=== PATIENT | male | born 1980 ===

== ENCOUNTER 2020-08-18 06:59 | Inpatient (IN) | payer OTHER ==
[~2020-08-18] VITALS: Ht 175.3 cm; Wt 77.1 kg
[2020-08-18] VITALS (10 sets, daily range): BP systolic 101–159; BP diastolic 56–89
[~2020-08-18 06:59] MED LIST: CENTRUM ADULTS1 TAB PO
--- NOTE | 2020-08-18 11:40 | NUR ---
PT ARRIVED FROM OR VIA STRETCHER WITH 2 GUARDS. IV SITE INTACT.
--- NOTE | 2020-08-18 12:34 | NUR ---
ASSESSMENT IS COMPLETED: IV SITE IS FREE FROM REDNESS OR EDEMA. HR IS REG,PULSES ARE STRONG X4, ABD IS SOFT WITH ACTIVE BS, BREATH SOUNDS ARE CLEAR BILATERALLY, PT HAS A DRESSING IS CDI , RAFITA DRAIN BLOODY DRAINAGE NOTED. PERSON INTACT. 2 GUARDS AT BEDSIDE. CONTINUE TO OBSERVE AND MONITOR.
[2020-08-18 13:11] LABS: ANION GAP 11 (6-22 (CALC)); BUN 13 mg/dL (9-20); BUN/CREATININE RATIO 17 (12-20 (CALC)); CARBON DIOXIDE 29 mmol/l (22-30); CHLORIDE 101 mmol/l (95-108); CREATININE 0.8 mg/dL (0.7-1.3); GFR > 60 ML/MIN (>=60 (CALC)); GFR FOR AFR.AMER. > 60 ML/MIN (>=60 (CALC)); POTASSIUM 4.3 mmol/l (3.5-5.1); SODIUM 137 mmol/l (137-146)
--- NOTE | 2020-08-18 13:30 | NUR ---
IV SITE BECAME PUFFY, AND WAS STOPPED. NEW IV SITE OBTAINED AT 1515 BY Octavio MANLEY WITH #20 IN RAC PT TOLERATED WELL. 2 GUARDS REMAINED AT BEDSIDE.
--- NOTE | 2020-08-18 13:41 | NUR ---
[facility]IL[facility], INFORMED THEM ABOUT THE REASON PT IS STAYING IN THE HOSPITAL. OPEN INCARCERATED HERNIA REPAIR, ALSO A NICKED BLADDER , HAS A PERSON AND RAFITA DRAIN.
--- NOTE | 2020-08-18 15:56 | NUR ---
PT REQUESTED PAIN MEDICATION.
--- NOTE | 2020-08-18 20:30 | NUR ---
PT MEDICATED ORDERS PROVIDE. REPORTS MINIMAL PAIN CONTROLLED AT THIS TIME. INCISION BRUISED BUT CDI. RAFITA DRAIN TO BULB SUCTION W/MODERATE AMOUNT OF RED OUTPUT. GUARDS AT BEDSIDE X4 FOR SHIFTCHANGE. PT IS SHACKLED TO BED BY LEFT ANKLE, CONFIRMED CIRCULATION WTIH GOOD PEDAL PULSES AND ROM. PT PROVIDED SNACK AT THIS TIME. CALL LIGHT IS AT SIDE AND PT HAS BEEN INSTRUCTED TO USE IT IF HE NEEDS TO AMBULATE OR ANY ASSISTANCE.
--- NOTE | 2020-08-18 22:59 | NUR ---
PT MEDICATED W/IV ANTIBIOTIC THERAPY AND W/PAIN MEDICATIONS ORDERS PROVIDE. PT REPORTS 4-6 PAIN LEVEL. 60CC OF BLOODY OUTPUT EMPTIED FROM PT'S RAFITA DRAIN. PT DENIES ANY OTHER NEEDS AT THIS TIME. PT IS AWAKE WATCHING TV. GUARDS X2 AT BEDSIDE. CALL LIGHT AT SIDE.
--- NOTE | 2020-08-19 01:11 | NUR ---
PT CALLED TO REPORT "REALLY BAD PAIN" IN HIS ABD. ASSESSED ABD AT THIS TIME TO APPEAR STABLE WITH INCIS CDI W/OUT ANY ADDITIONAL VISIBLE BRUISING OR DISTENTION. RAFITA DRAIN DRESSING CDI WITH SMALL AMOUNT OF OUTPUT AT THIS TIME. PT MEDICATED FOR PAIN WITH DILAUDID ORDERS PROVIDE AND INSTRUCTED PT TO CALL WITH ANY FURTHER CONCERNS OR DISTRESS. PERSON CATH DRAINING TO GRAVITY DARK YELLOW URINE.
--- NOTE | 2020-08-19 03:46 | NUR ---
PT CALLED TO ASK THAT HIS JPDRAIN BE EMPTIED. BULB STILL HAD REALLY STRONG SUCTION, BUT I EMPTIED 50CC OF RED BLOODY DRAINAGE AT THIS TIME. HE REPORTS THAT HIS PAIN LEVEL IS VERY CONTROLLED ALSO AT THIS TIME. CALL LIGHT AT SIDE AND GUARDS X2 AT BEDSIDE. PT DENIES ANY OTHER NEEDS.
[2020-08-19 04:00] VITALS: BP 110/62
[2020-08-19 05:48] LABS: HEMATOCRIT 37.3 % (39.0-50.0); HEMOGLOBIN 12.2 g/dl (14.0-18.0); IMMATURE GRANULOCYTES 0.2 % (0.0-5.0); MEAN CELL VOLUME 92.1 fL CALC (80.0-100.0); MEAN CORPUSCULAR HGB 30.1 pG CALC (26.0-32.0); MEAN CORPUSCULAR HGB CONC 32.7 g/dL CAL (32.0-36.0); NEUT# 6.8 thou/uL (1.82-7.42); RED BLOOD COUNT 4.05 mill/uL (4.70-6.10); RED CELL DISTRI WIDTH 12.1 % (11.5-15.5)
--- NOTE | 2020-08-19 05:53 | NUR ---
PT MEDICATED FOR PAIN 11/16 AND ANTIBIOTIC THERAPY ADMINISTERED AT THIS TIME.
[2020-08-19 06:00] LABS: ANION GAP 11 (6-22 (CALC)); BUN 18 mg/dL (9-20); BUN/CREATININE RATIO 18 (12-20 (CALC)); CARBON DIOXIDE 28 mmol/l (22-30); CHLORIDE 103 mmol/l (95-108); GFR > 60 ML/MIN (>=60 (CALC)); GFR FOR AFR.AMER. > 60 ML/MIN (>=60 (CALC)); POTASSIUM 3.8 mmol/l (3.5-5.1); SODIUM 138 mmol/l (137-146)
[2020-08-19 08:45] VITALS: BP 137/83
--- NOTE | 2020-08-19 08:55 | NUR ---
PATIENT RESTING IN THE BED , ALERT AND ORIENTED X3, NOTED 2 GUARDS AT THE BEDSIDE. O2 ROOM AIR LA NENA TO THE ABD CLEAN DRY AND INTACT. RAFITA DRAINING BRIGHT RED COLORED DRAINAGE. PERSON TO BEDSIDE DRAINAGE. IV INFUSING. SCD,S IN PLACE, PATIENT DENIES PAIN AT THIS TIME. REPOSITIOEND FOR COMFORT, SIDE RAILS UP CALL LIGHT IN REACH BED LOCKED IN LOW POSITION, WILL CONTINUE TO MONIOTR THE PATIENT.
--- NOTE | 2020-08-19 10:15 | NUR ---
OUT OF THE BED TO THE BSC, ALE WELL, BACK TO THE BED WITH ASST.
--- NOTE | 2020-08-19 11:56 | NUR ---
C/O PAIN MED PER ORDER. RAFITA SAMPLE SENT TO THE LAB. WILL CONTINUE TO MONITOR THE PATIENT.
--- NOTE | 2020-08-19 13:19 | NUR ---
PATIENT RESTING COMFORTABLE NO DISTRESS NOTED AT THIS TIME, WILL CONTINUE TO MONIOTR THE PATIENT.
[2020-08-19 15:33] VITALS: BP 125/78
--- NOTE | 2020-08-19 17:17 | NUR ---
PT RESTING IN THE BED STATES HE IS FEELING BETTER TODAY THAN YESTERDAY. RAFITA EMPTIED. PT STATES THE TORADOL IS HELPING WITH THE PAIN. NO DISTRESS NOTED AT THIS TIME. SIDE RAISL UP CALL LIGHT IN REACH, BED LOCKED IN LOW POSITION,2 GUARDS AT THE BEDSIDE. ALL SAFTY MEASURES IN PLACE. WILL CONTINUE TO MONIOTR THE PATIENT.
[2020-08-19 19:36] VITALS: BP 136/79
--- NOTE | 2020-08-19 20:04 | NUR ---
SCHEDULED MEDICATIONS AND PRN MEDICATION ADMINISTERED, SEE E-MAR. PT DENIES ANY NEEDS AT THIS TIME. PLAN OF CARE REVIEWED, PT DENIES QUESTIONS, VERBALIZES UNDERSTANDING. ITEMS WITHIN REACH, BED LOCKED IN LOW POSITION W/ BEDRAILS UP X2. CALL GORDON WITHIN REACH, AGREES TO CALL PRN.
--- NOTE | 2020-08-20 00:18 | NUR ---
PT LAYING IN BED WITH EYES CLOSED, APPEARS TO BE SLEEPING, APPEARS COMFORTABLE AND IN NO DISTRESS. RESPIRATIONS REGULAR AND UNLABORED. PT SHACKLED TO THE BED. GOOD CIRCULATION. 2 GUARDS BEDSIDE. ITEMS REMAIN WITHIN REACH, CALL GORDON REMAINS WITHIN REACH. BED REMAINS LOCKED AND IN LOW POSITION WITH BEDRAILS UP X2. WILL CONTINUE TO MONITOR.
--- NOTE | 2020-08-20 04:00 | NUR ---
PT RESTING IN BED, NO SIGNS OF DISTRESS NOTED, RESP EVEN AND UNLABORED. PT VOICES NO NEEDS OR COMPLAINTS AT THIS TIME. PT IS SHACKLED TO THE BED. CIRCULATION VERIFIED. 2 GUARDS ARE PRESENT. CALL LIGHT IN REACH, CONTINUE TO MONITOR.
[2020-08-20 04:41] VITALS: BP 121/76
[2020-08-20 08:27] VITALS: BP 133/80
--- NOTE | 2020-08-20 08:51 | NUR ---
PATIENT RESTING IN THE BED AXOX3. IV INFUSING , RAFITA DRAIN TO BULB SUCTION. PERSON TO BEDSIDE DRAINAGE. INCISSION CLEAN DRY AND INTACT. PATIENT STATES HIS PAIN AT A ONE (PERCOCET GIVEN AT 8.25) AT THIS TIME. OUT OF THE BED TO AMB IN THE PRESTON. NO SOB NOTED, PATIENT ABLE TO AMB 200FT WITHOUT DISTRESS. BACK TO BED WITH ASST. SIDE RAILS UP CALL LIGHT IN REACH, BED LOCKED IN LOW POSITION. GUARDS AT THE BEDSIDE, ALL SAFTY MEASURES IN PLACE. WILL CONTINUE TO MONITOR THE PATIENT.
--- NOTE | 2020-08-20 09:42 | NUR ---
PT HAD A LARGE BROWN SOFT STOOL.
--- NOTE | 2020-08-20 10:12 | NUR ---
NOTED SLIGHT RED DRAINAGE FROM THE MEATUS. HYGINE CARE GIVEN. NO DISTRESS TO THE PATIENT. WILL CONTINUE TO MONITOR.
--- NOTE | 2020-08-20 11:11 | NUR ---
PT RESTING COMFORTABLE IN THE BE. GUARDS AT THE BEDSIDE. NO DISTRESS NOTED AT THIS TIME. WILL CONTINUE TO MONITOR THE PATIENT.
[2020-08-20] MEDS ORDERED: BACTRIM DS1 TAB PO (11:29)
--- NOTE | 2020-08-20 11:52 | NUR ---
IV TO HL PER ORDER.
--- NOTE | 2020-08-20 12:03 | NUR ---
RECIEVED REPORT FROM VINEET KURTZ. CARE CONTINUED
--- NOTE | 2020-08-20 12:15 | NUR ---
PT RESTING IN SEMI FOWLES POSITION UPON ENTERING ROOM. INTRODUCED SELF TO PT AND DISCUSSED POC. PT IS A/O X3. RESPIRATIONS ARE EVEN AND UNLABORED ON ROOM AIR. #20G IN RAC FLUSHED, SITE APPEARS HEALTHY AND PATENT.ABD IS SOFT WITH TENDERNESS NOTED. RAFITA DRAIN IN PLACE. 10CC OFF BLOODY OUTPUT NOTED. PERSON CATHATER IN PLACE, 1000 OF DINA COLOR URINE NOTED. PT DENIES OF ANY PAINS OR DISCOMFORTS. ALL SAFETY PRECAUTIONS ARE IN PLACE WIHT GUARDS X2 AT BEDSIDE. WILL CONTINUE TO MONITOR.
--- NOTE | 2020-08-20 12:49 | NUR ---
RAFITA DRAIN TO RIGHT ABD REMOVED. PT TOLERATED WELL. PRESSURE DRESSING APPLIED. PT REQUESTING PAIN MEDICATIONS. PT MEDICATED PER EMAR.
--- NOTE | 2020-08-20 13:24 | NUR ---
[facility]
[2020-08-20 14:35] VITALS: BP 136/76
--- NOTE | 2020-08-20 16:50 | NUR ---
PT REQUESTING TO SHOWER AT THIS TIME. IV SITE AND RAFITA DRESSING COVERED. ASSISTED PT INTO SHOWER. INFORMED PT TO CALL FOR ASSISTANCE IF NEEDED. PT VERBALIZED UNDERSTANDING. ALL ASFETY PRECAUTIONS ARE IN PLACE WITH CALL LIGHT IN REACH AND GUARDS X2 AT BEDSIDE. WILL CONTINUE TO MONITOR
[2020-08-20 19:00] VITALS: BP 130/88
--- NOTE | 2020-08-20 21:17 | NUR ---
PHYSICAL ASSESMENT COMPLETE. PT C/O OF PAIN AND DISCOMFORT. SCHEDULED MEDICATIONS AND PRN MEDICATION ADMINISTERED, SEE E-MAR. PT DENIES ANY NEEDS AT THIS TIME. PT IS SHCKLED TO THE BED. CIRCULATION CHECKED AND VERIFIED. 2 GUARDS PRESENT. PLAN OF CARE REVIEWED, PT DENIES QUESTIONS, VERBALIZES UNDERSTANDING. ITEMS WITHIN REACH, BED LOCKED IN LOW POSITION W/ BEDRAILS UP X2. CALL GORDON WITHIN REACH, AGREES TO CALL PRN.
--- NOTE | 2020-08-21 00:05 | NUR ---
PT LAYING IN BED WITH EYES CLOSED, APPEARS TO BE SLEEPING, APPEARS COMFORTABLE AND IN NO DISTRESS. RESPIRATIONS REGULAR AND UNLABORED. PT IS SHACKLED TO THE BED. CIRCULATION WAS VERIFIED. 2 GUARDS ARE BEDSIDE. ITEMS REMAIN WITHIN REACH, CALL GORDON REMAINS WITHIN REACH. BED REMAINS LOCKED AND IN LOW POSITION WITH BEDRAILS UP X2. WILL CONTINUE TO MONITOR.
--- NOTE | 2020-08-21 00:15 | NUR ---
NOTED PTS URINE IS A PINK COLOR IN PERSON BAG. TUBING CHECKED FOR BENDS AND KINKS. TUBING IS UNOBSTRUCTED. WILL CONTINUE TO MONITOR.
--- NOTE | 2020-08-21 03:47 | NUR ---
PT RESTING IN BED, NO SIGNS OF DISTRESS NOTED, RESP EVEN AND UNLABORED. PT VOICES NO NEEDS OR COMPLAINTS AT THIS TIME. CALL LIGHT IN REACH, CONTINUE TO MONITOR.
[2020-08-21 03:58] VITALS: BP 134/72
[2020-08-21 07:30] VITALS: BP 114/73
--- NOTE | 2020-08-21 07:30 | NUR ---
PATIENT IN BED AT THIS TIME COMPLAINING OF PAIN IN ABDOMEN STATES IT IS A 7 PREVIOUSLY MEDICATED. PERSON PATENT AND DRAINING LIGHT PINK TINGED URINE AT THIS TIME DR. DUQUE NOTIFITED. CALL LIGHT WITHIN REACH SIDERAILS UP X 2 TWO CORRECTIONAL OFFICERS AT BEDSIDE DAVID GARDNERKLED ON AT THIS TIME. CASINO ATTENDANT DONE SEE INTERVENTIONS.
--- NOTE | 2020-08-21 10:00 | NUR ---
INCISIONS DRY AND INTACT AT THIS TIME NOTED BRUISING AROUND INCISIONS. INCISION LINE APPROXIMATE AND ARE IN HEALING STAGES. DRESSING WHERE RAFITA DRAIN WAS IN DRY AND INTACT AT THIS TIME AND IS COVERED WITH TEGADERM.
--- NOTE | 2020-08-21 12:10 | NUR ---
PATIENT RESTING IN BED AT THIS TIME 2 GUARDS ARE IN ROOM PRESENT. SIDERAILS ARE UP X 2 CALL LIGHT WITHIN REACH. PATIENT C/0 PAIN IN PERSON AT THIS TIME PERSON IS DRAINING LIGHT PINK TINGED URINE AT THIS TIME.
--- NOTE | 2020-08-21 13:30 | NUR ---
PATIENT COMPLAINING AT THIS TIME THAT IS BLADDER IS HURTING AND THE PERSON CATH THAT IS INPLACE IS HURTING. PERSON NOTED TO HAVE BLOOD TINGED URING AND 800MLS DRAINED AT THIS TIME. ORDER OBTAINED TO IRRIGATE WITH 1000ML OF STERIL WATER. IRRIGATION ATTEMPTED AT THIS TIME AND RESISTANCE WAS NOTED AND PATIENT COMPLAINED OF PAIN. PROCEEDURE STOPPED AND PERSON CATH REMOVED AT THIS TIME. WILLEM MANLEY ATTEMPTED TO INSERT #22 TURKMEN CATH AT THIS TIME AND AFTER INSERTIONS PERSON FAILED TO DRAIN AND PERSON WAS BEING REMOVED TWO LARGE CLOTS CAME OUT AT THIS TIME. DRU JOHNSON RN INSERTED A #22 TURKMEN 3-WAY AT THIS TIME AND CBI WAS STARTED. URINE FLOWING AND SMALL CLOTS NOTED IN TUBING AND URINE IS BLOOD TINGED AT THIS TIME. PATIENT STATED THAT HE DOES FEEL BETTER AT THIS TIME AND FEELS IF HIS BLADDER IS RELEASING URINE AT THIS TIME. PATIENT WILL CONTINUE TO BE MONITORED AND CBI WILL CONTINUE.
[2020-08-21 14:35] VITALS: BP 152/85
--- NOTE | 2020-08-21 15:56 | NUR ---
PERSON CATH EMPTIED AT THIS TIME A TOTAL OF 2700 ML EMPITED WITH ACTUAL URINE VOLUME TO BE 750 AT THIS TIME. URINE IS CLEAR AND WITHOUT CLOTS AT THIS TIME. PER DR. LANIER ORDER GIVEN TO STOP CBI AT THIS TIME AND CONTINUE TO MONITOR.
--- NOTE | 2020-08-21 16:07 | NUR ---
PATIENT RESTING IN BED AT THIS TIME. PATIENT STATES HE IS HAVING PAIN BUT NOT BAD BEFORE STATED BY PATIENT. PATIENT PERSON INPALCE AND DRAING CLEAR URING AT THIS TIME. SIDERAILS UP X 2 PATIENT REMAINS SCHAKELED AND TWO CORRECTIONS OFFICERS AT BEDSIDE.
--- NOTE | 2020-08-21 17:16 | NUR ---
PATIENT REPORTS PAIN SCALE IS NOW A 5 OUT OF 0-10 AT THIS TIME. WILL CONTINUE TO MONITOR.
[2020-08-21 19:30] VITALS: BP 132/79
--- NOTE | 2020-08-21 20:43 | NUR ---
RECEIVED REPORT FOR THIS PT AND IN BED WITH EYES CLOSED. RESPIRATION EVEN AND NON LABORED. HEART RHYTHM REGULAR. ABDOME IS FLAT AND BOWEL SOUNDS AR ACTIVE/HYPOACTIVE IN BILAT LOWER QUADRANTS.PT STATES HE IS PASSING GAS. DRESSING TO DRAIN SITE INSERTION IS INTACT AND SHADOWING NOTED ON DRESSING. MID LOWER INCISION SITE IS INTACT AND WELL APPROXIMATED WITH SURROUNDING INCISION SITE NOTED WITH PURPLISH COLOR BRUISES. PT STATES HE HAS A PRODUCTIVE COUGH. LUNG SOUNDS ARE CLEAR AND EQUAL. RADIAL AND PEDAL PULSE FELT BILATERALLY. IV 20G INTACT AND NO S/S OF INFECTION/INFILTRATION. PERSON CATH IN PLACE AND DRAING PINKISH COLORED URINE. NO CLOTS VISUALIZED. WILL CONTINUE TO OBSERVE.
--- NOTE | 2020-08-22 01:27 | NUR ---
PT CONTINUES TO COMPLAIN OF PAIN AT 10 ON SCALE OF 1-10 WITH 10 GREATESTO PENIS AREA. BRUISING REDNESS AND SWELLING NOTED AROUNF THE SHAFT OF PENIS. PT STATES HE FELT LIKE CATHETER WAS COMING OUT. FLUID REMOVED FROM PERSON CATH AND CATHETER WAS ADVANCED AND FLUIDS REPLACED IN [place] AND PT STATES HE FELT SOME RELEIF AT THAT MOMENT. PERSON CATHETER IS DRAINING BLOOD TINGED URINE THAT IS TEA COLORED WITH SEDIMENT NOTED AND NO CLOTS NOTED. BLADDER SCAN WAS COMPLETED AND 66ML AND 32ML NOTED. ICE APPLIED TO PENILE AREA AND ELEVATED PENIS. OXYBUTYNIN WAS GIVEN TO ASSIST WITH BLADDER AND PENILE SPASM. PT WAS EDUCATED TO DRINK MORE FLUIDS. PT ONLY WANTING TO DRINK SWEET BEVERAGES. ENCOURAGED PT TO INCREASED WATER INTAKE AND HE STATES HE UNDERSTANDS. CALL LIGHT IS WITHIN REACH. WILL CONTINUE TO OBSERVE
--- NOTE | 2020-08-22 03:22 | NUR ---
pt complaining burning, throbbing, and muscle spasms. ice applied to penile area and helpful. penile elevation helpful as well. continues to have bllod tinged tea colored urine noted. dilaudid was given and prescribed and helpful. Call light is within reach. will continue to observe
[2020-08-22 04:00] VITALS: BP 125/76
[2020-08-22 06:10] LABS: HEMATOCRIT 40.7 % (39.0-50.0); HEMOGLOBIN 13.6 g/dl (14.0-18.0); MEAN CELL VOLUME 89.5 fL CALC (80.0-100.0); MEAN CORPUSCULAR HGB 29.9 pG CALC (26.0-32.0); MEAN CORPUSCULAR HGB CONC 33.4 g/dL CAL (32.0-36.0); RED BLOOD COUNT 4.55 mill/uL (4.70-6.10); RED CELL DISTRI WIDTH 12.1 % (11.5-15.5)
--- NOTE | 2020-08-22 06:29 | NUR ---
PT IN BED WITH EYES OPEN AND ABLE TO MAKE NEEDS KNOWN. WAS MEDICATEDN WITH PERCOCET FOR PENILE PAIN AND EFFECTIVE. PT STARTED ON PYRIDIUM FOR BLADDER PAIN. ICE WAS APPLIED TO PENIS AND EFFECTIVE TO EASE PAIN. CONTINUING TO ENCOURAGE FLUID INTAKE. URINE IS TEA COLORED AND OUTPUT THIS AM 1400ML. ABDOMEN IS FLAT AND 2 INCISION TO LOWER ABDOMEN IS INTACT AND WELL APPROXIMATED. VITALS ARE WITHIN NORMAL LIMITS AND WILL CONTINUE TO OBSERVE
[2020-08-22 06:38] LABS: ANION GAP 10 (6-22 (CALC)); BUN 18 mg/dL (9-20); BUN/CREATININE RATIO 18 (12-20 (CALC)); CARBON DIOXIDE 31 mmol/l (22-30); CHLORIDE 98 mmol/l (95-108); GFR > 60 ML/MIN (>=60 (CALC)); GFR FOR AFR.AMER. > 60 ML/MIN (>=60 (CALC)); POTASSIUM 4.2 mmol/l (3.5-5.1); SODIUM 135 mmol/l (137-146)
[2020-08-22 07:45] VITALS: BP 120/80
--- NOTE | 2020-08-22 07:45 | NUR ---
PATIENT LAYING IN BED AT THIS TIME SCHAKLED TO BED TWO CORRECTIONAL OFFICERS AT BEDSIDE. PATIENT ROOFING TILE SORTER DONE AT THIS TIME. PERSON PATENT AND DRAINING ORANGE/TEA COLOR URING AT THIS TIME. NO BLOOD CLOTS NOTED. PATIENTS C/0 PAIN IN PENIS AREA AND PENIS IS BRUISED AND SLIGHTLY EDEMAOUS AT THIS TIME. PATENT HAS A #[address] PATIENT EDUCATED ON THE USE OF AN ICE-PACK ON HIS PENIS AND VERBALIZES UNDERSTANDING. PATIENT WAS PREVIOULY MEDICATED FOR PAIN AND RATES HIS PAIN NOW AT A "4" OUT OF A PAIN SCALE OF 0-10. SIDERAILS ARE UP CALL LIGHT WITHIN REACH. ABDOMINAL INCISIONS ARE DRY AND INTACT AND IN HEALING STAGES. RAFITA DRAIN SITE DRESSING DRY AND INTACT AND NO DRAINAGE NOTED.
--- NOTE | 2020-08-22 09:30 | NUR ---
WENT TO PATIENT'S ROOM TO GIVE MORNING MEDICATIONS AT THIS TIME. EXPLAINED TO PATIENT THAT IV DILAUDID WAS NOW DC AND HE COULD HAVE OXYCODONE FOR PAIN. WHEN ASKED WHAT HIS PAIN LEVEL WAS AT THIS TIME PATIENT STATED "I'M GOOD" I DON'T NEED ANYTHING FOR PAIN. PATIENT ADVISED TO CALL FOR NURSE IF HIS PAIN INCREASED AND WOULD LIKE TO BE MEDICATED FOR PAIN.
--- NOTE | 2020-08-22 10:56 | NUR ---
MEDICATED PATIENT AT THIS TIME WITH OXYCODONE 5/325MG FOR STATED PAIN LEVEL OF "10" AND A FACIAL SCALE OF "5". WILL CONTINUE TO MONITOR.
--- NOTE | 2020-08-22 11:26 | NUR ---
PATIENT PAIN LEVEL IS NOW A "7" AND HIS FACE SCALE IS A 5. PATIENT WILL CONTINUE TO BE MONITORED.
--- NOTE | 2020-08-22 12:00 | NUR ---
PATIENT SITTING IN BED AT THIS EATING LUNCH AND WATCHING TV. PATIENT STATED PAIN IS "7" OUT OF A SCALE OF 0-10. PATIENT ADVISED THAT HE NEEDS TO WALK IN THE PRESTON TODAY AT LEAST 200 FT. AND THAT HE WILL BE ASSISTED. PATIENT VERBALIZED UNDERSTANDING OF PLAN OF CARE.
--- NOTE | 2020-08-22 13:00 | NUR ---
PATIENT UP AND WALKING IN HALLWAY AT THIS TIME WITH TWO GAURDS AT PRESENT. PATIENT THEN REQESTED TO TAKE SHOWER AT THIS TIME. PATIENT TOLERATED WALK WITHIOUT INCIDENT OR ISSUES.
--- NOTE | 2020-08-22 13:54 | NUR ---
TRANSFER PATIENT TO NURSE AUDRA MAHER AT THIS TIME. PATIENT IN STABLE CONDITION.
[2020-08-22 15:30] VITALS: BP 135/83
--- NOTE | 2020-08-22 16:00 | NUR ---
PT IS RELAXING IN BED WITH C/O PAIN , MED WAS GIVEN AT 1500 PER TIME.
--- NOTE | 2020-08-22 16:44 | NUR ---
SPOKE WITH NURSE CORMIER AT [facility]. AN UPDATE FOR PT. WILL HAVE A PROCEDURE ON MONDAY POSSIBLE LATE AFTERNOON DISCHARGE ON MONDAY
--- NOTE | 2020-08-22 19:30 | NUR ---
PATIENT RESTING IN BED AT THIS TIME WITH KELECHI'S AT BEDSIDE. PATIENT IS AWAKE ALERT AND ORIENTEDX3 C/O POST-OP PENIAL PAIN-8/10 ON PAIN SCALE. PATIENT MEDICATED WITH PERCOCET ORDERED FOR PAIN. FOELY CATH IS PATENT AND DRAINING ORANGE URINE-PATIENT IS ON PYRIDIUM. USE ICE FOR SWELLING AND COMFORT. IV SITE TO RAC INTACT-APPEARS HEALTHY AT THIS TIME. ENCOURAGE PO FLUIDS/ PATIENT IS ABLE TO DEMONSTRATE PROPER USE OF IS AT THIS TIME. ENCOURAGED USE Q1H WHILE AWAKE IN REPS OF 10. SCD'S ARE IN PLACE. LLE SHACKLED TO BED. SAFETY PRECAUTIONS REINFORCED. CALL LIGHT IN REACH. WILL CONT TO MONITOR.
[2020-08-22 20:00] VITALS: BP 125/81
--- NOTE | 2020-08-22 23:34 | NUR ---
PATIENT RESTING IN BED WITH KELECHI'S AT BEDSIDE. MEDICATED FOR C/O PAIN WITH PERCOCET 5/325MG PO. PERSON REMAINS PATENT AND DRAINING ORANGE URINE. CONT TO USE ICE PACKS TO PENIS.SCOTAL AREA. CALL LIGHT IN REACH, WILL CONT TO MONITOR.
[2020-08-23] VITALS: BP 132/69
--- NOTE | 2020-08-23 02:26 | NUR ---
RESTING IN BED-STILL AWAKE WITH KELECHI'S AT BEDSIDE. PERSON PATENT AND DRAINING ORANGE URINE. SNACKS AT BEDSIDE. CALL LIGHT IN REACH. WILL CONT TO MONITOR.
--- NOTE | 2020-08-23 03:27 | NUR ---
PATIENT RESTING IN BED WITH KELECHI'S AT BEDSIDE. PATIENT C/O SEVERE PAIN TO PENIS 10/10 ON PAIN SCALE. MEDICATED WITH PERCOCET 5/325MG PO. PATIENT WITH LITTLE OR NO SLEEP ALL NIGHT. PERSON PATENT AND DRAINING ORANGE URINE-PATIENT IS ON PYRIDIUM. CALL LIGHT IN REACH. WILL CONT TO MONITOR.
[2020-08-23 04:00] VITALS: BP 147/85
--- NOTE | 2020-08-23 04:51 | NUR ---
PATIENT RESTING IN BED-STILL AWAKE. PATIENT HAS SLEPT VERY LITTLE IF ANY TONIGHT. PERSON PATENT AND DRAINING ORANGE URINE. CALL LIGHT IN REACH. WILL CONT TO MONITOR.
[2020-08-23 07:13] VITALS: BP 126/75
--- NOTE | 2020-08-23 07:13 | NUR ---
PATIENT RESTING IN BED AT THIS TIME. PATIENT STATES HIS PAIN IS A "8" OUT OF THE PAIN SCALE OF 0-10. PATIENT FACIAL EXPRESSIONS IS A 4 ON THE FACE SCALE. PATIENT REMINDED IT IS TOO EARLY TO BE REMEDICATED FOR PAIN AT THIS TIME. PATIENT DIRECTED ON RELAXATION TECHNIQUES. SLIMER DONE AT THIS TIME SEE INTERVENTIONS. PERSON CATH REMAINS PATIENT AND DRAINING ORANGE COLORED URINE THAT IS CLEAR. PENIS HAS SMALL AMOUNT OF HEALING BRUISING SLIGHT AMOUNT OF SWELLING NOTED. CALL LIGHT IS WITHIN REACH SIDERAILS UP X 2. SCD'S ON AND SCHAKLES ARE ON THE RIGHT LEG AT THIS TIME NO SKIN OR OBSTRUCTION NOTED. TWO CORRECTIONS OFFICERS ARE AT BEDSIDE.
--- NOTE | 2020-08-23 08:02 | NUR ---
PATIENT UP IN HALLWAY WALKING WITH OFFICERS AT SIDE. PATIENT STATES HIS PAIN IS STILL AN "8" PATIENT MEDICATED WITH OXYECODONE 5/325MG AT THIS TIME. PATIENTS COMMENTED "GREAT" "I AM GONNA GET DOPE UP, SET UP, EAT MY BREAKFAST" AND KICK BACK". PATIENT WILL CONTINUE TO BE MONITORED. SIDERAILS ARE UP CALL LIGHT WITHIN REACH.
--- NOTE | 2020-08-23 12:02 | NUR ---
PATIENT LAYING IN BED AT THIS TIME WATCHING TV AND LAUGHING AND STATED THAT HIS PAIN IS A "7" OUT OF THE PAIN SCALE OF 0-10 AND WANTS "MY PAIN MED". PATIENT MEDICATED AT THIS TIME WITH 1 PERCOCET 5/325MG. PATIENTS FACIAL PAIN SCALE IS A "3". PATIENT PERSON REMAINS PATENT AND DRAINING CLEAR ORANGE URINE. PATIENT IS TAKING PYRIDIUM AT THIS TIME. SIDERAILS ARE UP TWO GUARDS REMAIN AT BEDSIDE AND PATIENT SCD'S ARE IN PALCE AND SHACKLES REMAIN ON RIGHT ANKLE AND NO SIGNS OF REDNESS OR SWELLING NOTED.
--- NOTE | 2020-08-23 12:47 | NUR ---
PATIENT RATES PAIN ABOUT 5-6 AND FACIAL PAIN SCALE IS A "2". PATIENT RESTING IN BED SIDERAILS UP CALL LIGHT WITHIN REACH. 2 GUARDS REMAIN AT BEDSIDE.
[2020-08-23 15:10] VITALS: BP 124/76
--- NOTE | 2020-08-23 15:46 | NUR ---
PATIENT LAYING IN BED AT THIS TIME STATES PAIN IS A 6 AT THIS TIME. PATIENT PREVIOUSLY MEDICATED. PERSON PATENT AND DRAINING CLEAR ORANGE COLOR URINE AT THIS TIME. NO BLOOD CLOTS NOTED. SIDERAILS ARE UP CALL LIGHT WITHIN REACH. TWO GAURDS ARE AT BEDSIDE AT THIS TIME PATIENT REMAINS SHACKLED TO BED BY RIGHT ANKLE. NO SWELLING AT SITE AND NO REDNESS NOTED. SIDERAILS ARE UP CALL LIGHT WITHIN REACH.
[2020-08-23 19:00] VITALS: BP 152/89
--- NOTE | 2020-08-23 19:44 | NUR ---
SBAR REPORT RECEIVED FROM VINEET SAMUEL. PATIENT LYING IN BED, 2 GUARDS AT BEDSIDE. PATIENT SHACKLED AT LEFT ANKLE.
[2020-08-24 04:00] VITALS: BP 158/95
[2020-08-24 08:00] VITALS: BP 112/68
--- NOTE | 2020-08-24 08:00 | NUR ---
PATIENT RESTING IN THE BED GUARDS AT THE BEDSIDE. AXOX3, PERSON TO BEDSIDE DRAINAGE. DRESSINGS TO THE ABD CLEAN DRY AND INTACT. INCISSION CLEAN DRY AND INTACT. C/O PAIN MED PER ORDER. REPOSITIOEND FOR COMFORT, SIDE RAISL UP CALL LIGHT IN REACH BED LOCKED IN LOW POSITION, WILL CONTINUE TO MONITOR THE PATIENT, ALL SAFTY MEASURES IN PLACE.
--- NOTE | 2020-08-24 09:30 | NUR ---
PATIENT RESTING WITH EYES CLOSED NO DISTRESS NOTED AT THIS TIME.
--- NOTE | 2020-08-24 12:15 | NUR ---
PATIENT RETURNED FROMXRAY, INTO BED WITH ASST, ALL SAFTY MEASURES IN PLACE. WILL CONTINUE TO MONIOTR THE PATIENT.
--- NOTE | 2020-08-24 13:30 | NUR ---
PERSON REMOVED PER ORDER.
--- NOTE | 2020-08-24 15:20 | NUR ---
PATIENT VOIDED 200 CC DARK RED COLORED URINE.
--- NOTE | 2020-08-24 16:05 | NUR ---
Ovi REMOVED. DISCHARGE ORDERS GIVEN UNDERSTOOD AND SIGNED BY THE PATIENT SCRIPT AND PAPERWORK GIVEN TO RASHAAD TO BE TAKEN TO THE COR[facility]CTIONAL FACILITY.
--- NOTE | 2020-08-24 16:30 | NUR ---
PATIENT LEFT WITH GUARDS TO GO BACK TO [facility]CTIONAL FACILITY.
== END 2020-08-24 16:50 | DRG 909 ==
LOC: ORM 06:59 → MS2 11:35
PROVIDERS: ADMIT Surgery; ATTEND Surgery
PROC: 0TQB0ZZ Repair Bladder, Open Approach (ICD-10-PCS; principal; 2020-08-18)
PROC: 0YU50JZ Supplement Right Inguinal Region with Synthetic Substitute, Open Approach (ICD-10-PCS; 2020-08-18)
PROC: 0YJ54ZZ Inspection of Right Inguinal Region, Percutaneous Endoscopic Approach (ICD-10-PCS; 2020-08-18)
PROC: BT10ZZZ Fluoroscopy of Bladder (ICD-10-PCS; 2020-08-24)
DX: N99.72 Accidental puncture and laceration of a genitourinary system organ or structure during other procedure (principal); K40.90 Unilateral inguinal hernia, without obstruction or gangrene, not specified as recurrent; N32.89 Other specified disorders of bladder; Y83.8 Other surgical procedures as the cause of abnormal reaction of the patient, or of later complication, without mention of misadventure at the time of the procedure; Y92.234 Operating room of hospital as the place of occurrence of the external cause; Z20.822 Contact with and (suspected) exposure to COVID-19
CPT/HCPCS: C1781; J0131; J1100; J1650